=== PATIENT | male | born 1980 | race African-American/Black ===

== ENCOUNTER 2019-10-29 22:42 | Emergency (ER) | payer BC, OTHER ==
[~2019-10-29] VITALS: Ht 162.6 cm; Wt 68.2 kg
[2019-10-29 23:25] VITALS: BP 133/75
[2019-10-30] MEDS ORDERED: BACITRACIN TOPICAL OINT PACKET. TP ONE (00:41)
[2019-10-30] MEDS ORDERED: HYDROcodone/APAP 5/325MG 1 TAB TABLET PO ONE (01:00)
[2019-10-30] MEDS ORDERED: DIPHTH,PERTUSS(ACELL),TET TOX 0.5 ML DISP.SYRIN. VAX IM ONE (01:00)
[2019-10-30] MEDS ORDERED: OXYC5CAP PO (01:01)
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
== END 2019-10-30 01:05 | disposition home or self-care (01) ==
LOC: ER 22:42
DX: T22.231A Burn of second degree of right upper arm, initial encounter (principal); T21.23XA Burn of second degree of upper back, initial encounter; F17.200 Nicotine dependence, unspecified, uncomplicated; T20.27XA Burn of second degree of neck, initial encounter; T31.0 Burns involving less than 10% of body surface; X98.1XXA Assault by hot tap water, initial encounter; Y93.89 Activity, other specified; Y92.89 Other specified places as the place of occurrence of the external cause; Y99.8 Other external cause status
CPT/HCPCS: 90471; 90715; 99283